=== PATIENT | female | born 1975 | race Caucasian/White ===

== ENCOUNTER 2024-12-05 07:33 | Day surgery (SDC) | payer BC, SELFPAY ==
[2024-12-05] VITALS (9 sets, daily range): BP systolic 108–202; BP diastolic 64–110; PULSE 65–87; RESP 15–16; TEMP 36.2–36.7; O2SAT 93–98; BMI 37.0
[2024-12-05] MEDS: SODIUM CHLORIDE 0.9 % (FLUSH) 10 ML SYRINGE IVF (08:17)
[2024-12-05] MEDS: LACTATED RINGERS 1000 ML 1,000 ML 100 ML IV ×2 (08:17→10:30)
--- NOTE | 2024-12-05 09:01 | W.PM.H&PU ---
History & Physical Update History & Physical Update H&P Reviewed and patient assessed: No changes noted
[2024-12-05] MEDS: LIDOCAINE 1% MDV 30 ML INJECTION (10:28)
[2024-12-05] MEDS: BUPIVACAINE 0.25% 30 ML INJECTION (10:28)
--- NOTE | 2024-12-05 11:35 | P.ANES_ITS ---
Anesthesia Charges Start Date/Time Anesthesia Start Date: 12/05/24 Anesthesia Start Time: 09:43 Stop Date/Time Anesthesia Stop Date: 12/05/24 Anesthesia Stop Time: 11:26 Coding CPT Codes CPT Codes: ANESTH HEAD/NECK/PTRUNK - 36223 ([id number]) P2 - PATIENT W/MILD SYST DISEASE, QK - CORRESPONDENT 2-4 CNCRNT ANES PROC, QX - HEDIS COORDINATOR SVC W/ MD MED DIRECTION
--- NOTE | 2024-12-05 11:35 | W.ANESCHARGE ---
Anesthesia Charges Start Date/Time Anesthesia Start Date: 12/05/24 Anesthesia Start Time: 09:43 Stop Date/Time Anesthesia Stop Date: 12/05/24 Anesthesia Stop Time: 11:26 Coding CPT Codes CPT Codes: ANESTH HEAD/NECK/PTRUNK - 08313 ([id number]) P2 - PATIENT W/MILD SYST DISEASE, QK - CHARTER BUS DRIVER 2-4 CNCRNT ANES PROC, QX - ROD MILL TENDER SVC W/ MD MED DIRECTION
--- NOTE | 2024-12-05 11:36 | P.GSOP_ITS ---
Operative Note Date of procedure: 12/05/24 Pre-op diagnosis: 1. Left posterior shoulder lipoma 2. Left upper extremity lipomas, x3 3. Right hand lipoma 5. Right upper extremity lipoma x3 Post-op diagnosis: Same Type of Procedure: Excision of bilateral upper extremity lipomas, excision left posterior shoulder lipoma, excision right hand lipoma Indications: Patient is a 49-year-old female who presented to clinic with multiple symptomatic subcutaneous masses, consistent with lipomas. Different treatment options were reviewed with the patient, please see consultation note for full discussion. Due to the size and location of her lesions it was recommended that we remove on the operating room under mac sedation. Risks and benefits of operative intervention were discussed at length with the patient. Risks included but was not limited to: Bleeding, infection, risk of damage to surrounding structures, possible need for additional procedures and postoperative complications such as pneumonia, pulmonary emboli or DC. All questions and concerns were addressed with the patient agreeing to proceed. Procedure Description: After discussing the risks and benefits of the procedure, the patient signed informed consent.? The operative site was marked and the patient was brought to the operating room and placed on the operating table in left lateral position.? Care was taken to pad the patient's pressure points.?? The patient was then given sedation by anesthesia.?? The operative site was then prepped and draped in the usual sterile fashion.? A time-out was then performed. Attention was 1st directed to the left posterior shoulder. A mixture of 1% lidocaine and 0.25% Marcaine was used to anesthetize the surgical field. A transverse incision was made over the marked area. Dissection was carried down through subcutaneous tissue with cautery. Using blunt dissection a well e ncapsulated lipoma measuring 3 x 3.5 x 0.5 cm was removed. This was passed off the back table for pathology. Hemostasis was assured with cautery. The incision was then closed in layers interrupted 3-0 Vicryl and running 4-0 Monocryl. Steri-Strips were applied. The incision line was 4 cm. We then directed our attention to the multiple left upper extremity lipomas. All 3 were removed in similar fashion. A mixture of 1% lidocaine and 0.25% Marcaine was used to anesthetize the surgical field in each area. A vertical incision was made over the marked areas. Dissection was carried through subcutaneous tissue with cautery. Using blunt dissection each mass was removed. The 3 masses were present on the upper portion of the left arm. Each incision measured 2 cm, 1 cm and 1 cm. The masses were passed off for pathology. All 3 masses were placed into the same specimen jar. The masses measured 1.5 x 1.5 cm, 1 x 1 cm, 1 x 1 cm. Each incision site was inspected for hemostasis with cautery used when appropriate. The incisions were then closed in layers of interrupted 3-0 Vicryl and running 4-0 Monocryl. Steri-Strips were applied. We then repositioned the patient supine, to allow access to the right upper extremity lipomas and right hand lipoma. The right arm was then prepped circumferentially and an extremity drape used to create a sterile field. Attention was 1st directed to the right hand, where small lipoma was palpated in between the webspace between the first and second digit. A mixture 1% lidocaine and 0.25% Marcaine was used to anesthetize the surgical field. A 1 cm vertical incision was made over the marked area. Dissection was carried down through subcutaneous tissue with cautery. Using blunt dissection a well encapsulated lipoma measuring 0.5 x 0.5 cm was removed. Hemostasis was assured with cautery. The incision was closed with running 4-0 Monocryl suture. Dermabond and Steri- Strips were applied over the incision site. Attention was then directed to the 3 areas of the right upper extremity that were each circled for underlying lipomas. Each section was anesthetized with 1% lidocaine and 0.25% Marcaine a vertical incision 1 cm in size was made over each site. Dissection was carried through subcutaneous tissue with cautery. Using blunt dissection a well encapsulated lipoma was removed from each area. Each mass measured 1.5 x 1 cm, 1.5 x 1 cm and 0.5 x 0.5 cm. Hemostasis was assured with cautery. Each incision site was closed with running 4-0 Monocryl. Steri- Strips were applied to each area. All of the upper extremity, right side lipomas were passed off to be sent in the same pathology jar. ? The patient was then woken and transported to the recovery area in stable condition. ? The patient tolerated the procedure well. Findings: 1. Left posterior shoulder mass 3 x 3.5 x 0.5 cm 2. Left arm lipomas (3) 1.5 x 1.5 cm, 1 x 1 cm, 1 x 1 cm 3. Right upper extremity lipomas (4) 0.5 x 0.5 cm, 1.5 x 1 cm, 1.5 x 1 cm, 0.5 x 0.5 cm Anesthesia: MAC and local Surgeon: Sandy Curran MD Estimated blood loss (mL): 5 Additional Specimen Information: 1. Left posterior shoulder lipoma 2. Left upper extremity lipomas, 3 3. Right upper extremity lipomas, 4 Condition: stable Disposition: same day
--- NOTE | 2024-12-05 11:37 | P.ANES_ITS ---
Anesthesia Charges Start Date/Time Anesthesia Start Date: 12/05/24 Anesthesia Start Time: 09:43 Stop Date/Time Anesthesia Stop Date: 12/05/24 Anesthesia Stop Time: 11:26 Coding CPT Codes CPT Codes: ANESTH HEAD/NECK/PTRUNK - 09284 ([id number]) QK - VESSEL TRAFFIC OFFICER 2-4 CNCRNT ANES PROC, QX - FERRY OPERATOR SVC W/ MD MED DIRECTION, P2 - PATIENT W/MILD SYST DISEASE
--- NOTE | 2024-12-05 11:37 | W.ANESCHARGE ---
Anesthesia Charges Start Date/Time Anesthesia Start Date: 12/05/24 Anesthesia Start Time: 09:43 Stop Date/Time Anesthesia Stop Date: 12/05/24 Anesthesia Stop Time: 11:26 Coding CPT Codes CPT Codes: ANESTH HEAD/NECK/PTRUNK - 32171 ([id number]) QK - JUSTICE COURT JUDGE 2-4 CNCRNT ANES PROC, QX - SALES REPRESENTATIVE EDUCATION COURSES SVC W/ MD MED DIRECTION, P2 - PATIENT W/MILD SYST DISEASE
--- NOTE | 2024-12-05 13:09 | SUR.PHASEII ---
Applied 2x2 gauze and tape to surgical sites. Instructed patient and family to remove the gauze tomorrow and leave the steri-strips on until they fall off around 10 days. Patient and family verbalized understanding.
== END 2024-12-05 13:08 | disposition home or self-care (01) ==
PROVIDERS: PCP Nurse Practitioner Family; Visit Provider Surgery
PROC: (CPT 23071; principal; 2024-12-05 08:45)
DX: D17.22 Benign lipomatous neoplasm of skin and subcutaneous tissue of left arm (principal); D17.21 Benign lipomatous neoplasm of skin and subcutaneous tissue of right arm
CPT/HCPCS: 23071; 24071; 24075 ×6; 00300; 88304; 88305; J2003; T1013; J0665; J0690; J7120